=== PATIENT | female | born 1995 | race American Indian/Alaskan Native ===

== ENCOUNTER 2020-11-16 11:56 | Emergency (ER) | payer MEDICAID, OTHER ==
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
--- NOTE | 2020-11-16 14:06 | XRay Report ---
Left knee 3 views INDICATION: Pain FINDINGS: Alignment appears normal. No acute fracture dislocation. Signer Name: Chace Herring MD Signed: 11/16/2020 2:02 PM Workstation Name: [email or web address]
[2020-11-16 14:37] VITALS: BP 116/64
== END 2020-11-16 14:43 | disposition home or self-care (01) ==
LOC: ED 11:56
DX: M25.562 Pain in left knee (principal); V87.7XXA Person injured in collision between other specified motor vehicles (traffic), initial encounter; W22.11XA Striking against or struck by driver side automobile airbag, initial encounter; Y93.89 Activity, other specified; Y92.89 Other specified places as the place of occurrence of the external cause; Y99.8 Other external cause status
CPT/HCPCS: 99283